=== PATIENT | female | born 1990 | race Hispanic/Latino ===

== ENCOUNTER → 2020-10-07 09:42 | Outpatient (CLI) | payer SELFPAY ==
--- NOTE | 2020-10-07 10:00 | RAD_ITS ---
INDICATION: HARD TO SWALLOW SINCE OCT 2019, BURNING EXAMINATION/TECHNIQUE: Thin liquid oral contrast was administered to the patient. Total Fluoroscopic Time: 1.5 minutes AND number of Fluoroscopic Images: 13 imaging sets OR Radiation dosage index: COMPARISON: None. FINDINGS: No masses or strictures are identified. There is no hiatal hernia. The mucosal pattern is unremarkable. There is normal motility. Reflux was not elicited. RAD/Esophagus Single Contrast IMPRESSION: Normal esophagram Electronically Signed: Navneet Bright, at 15:12 EST Tel , Service support ,
== END ==
PROVIDERS: Referring Provider Otolaryngology; Visit Provider Otolaryngology
DX: R13.10 Dysphagia, unspecified (principal)
CPT/HCPCS: 74220